=== PATIENT | male | born 1970 | race Caucasian/White ===

== ENCOUNTER 2022-03-29 15:23 | Emergency (ER) | payer BC ==
[~2022-03-29] VITALS: Ht 167.6 cm; Wt 77.3 kg
[2022-03-29] MEDS ORDERED: HYDROcodone/acetaminophen 5mg/325mg tablet PO ONE (15:40)
[2022-03-29] MEDS ORDERED: LIDOCAINE 2%/EPI 1:100,000 inj. Multi-dose 20 ML VIAL SQ ONE (15:40)
[2022-03-29] MEDS ORDERED: sulfamethoxazole/trimethoprim DS (800/160mg) tablet PO ONE (15:40)
[2022-03-29] MEDS ORDERED: LORazepam 2 mg/ml vial IM ONE (16:00)
[2022-03-29 17:15] VITALS: BP 131/80
[2022-03-29] MEDS ORDERED: CEPH500C2 PO (18:03)
[2022-03-29] MEDS ORDERED: HYDR-3965 PO (18:03)
[2022-03-29] MEDS ORDERED: cephalexin 500mg capsule PO ONE (18:10)
[2022-03-29] MEDS ORDERED: HYDROcodone/acetaminophen 10/325mg tab PO ONE (18:15)
== END 2022-03-29 18:50 | disposition home or self-care (01) ==
LOC: ER 15:24
DX: S61.214A Laceration without foreign body of right ring finger without damage to nail, initial encounter (principal); S61.011A Laceration without foreign body of right thumb without damage to nail, initial encounter; Z88.0 Allergy status to penicillin; Z79.899 Other long term (current) drug therapy; W26.8XXA Contact with other sharp object(s), not elsewhere classified, initial encounter; Y93.89 Activity, other specified; Y92.89 Other specified places as the place of occurrence of the external cause; Y99.8 Other external cause status
CPT/HCPCS: 12002; 96372; 99285; A6222; J2060; J7030; 99283; A6449